=== PATIENT | female | born 1940 | race Two or more races ===

== ENCOUNTER 2016-09-14 13:22 | Inpatient (IN) | payer OTHER, MEDICARE ==
[~2016-09-14] VITALS: Ht 162.6 cm; Wt 48.8 kg
[2016-09-14 14:35] LABS: BASOPHIL % 0.4 % (0-2); PLATELET COUNT 259 x10^3mcL (130-400); RED CELL DISTRIBUTION WIDTH 14.4 % (11.5-14.5)
[2016-09-14 14:45] LABS: CARBON DIOXIDE 29.1 mmol/L (21-32); CHLORIDE SERUM 105 mmol/L (98-107); CREATININE SERUM 0.7 mg/dL (0.6-1.0); GLUCOSE SERUM 100 mg/dL (74-106); POTASSIUM SERUM 4.9 mmol/L (3.5-5.1); SODIUM SERUM 138 mmol/L (136-145)
[2016-09-14 14:49] LABS: ALBUMIN 3.5 g/dL (3.4-5.0); ALKALINE PHOSPHATASE 80 U/L (46-116); ALT/SGPT 18 U/L (14-59); AST/SGOT 17 U/L (15-37); BILIRUBIN TOTAL 1.2 mg/dL (0.20-1.00); LIPASE 141 IU/L (73-393); TOTAL PROTEIN, SERUM 7.4 g/dL (6.4-8.2)
--- NOTE | 2016-09-14 15:01 | NUR ---
PT PRESENTED TO ED WITH C/O PAIN TO RLQ X 5 DAYS. ABD IS SOFT AND ROUND. NO PALPABLE MASSES. PT CLAIMS WAS SEEN AT URGENT CARE AND REFERED TO COME TO ED TO RULE OUT APENDICITIS. PT REPORTS PAIN LEVEL 5/10. PT A/O X 4. PT IS STABLE AND IN NO ACUTE DISTRESS.
[2016-09-14] MEDS ORDERED: ATENOLOL25 MG PO (15:36)
[2016-09-14] MEDS ORDERED: METFORMIN500 M1 PO (15:36)
[2016-09-14] MEDS ORDERED: NEU300 PO (15:37)
[2016-09-14] MEDS ORDERED: MIRAPEX0.25 MG PO (15:37)
[2016-09-14 15:50] LABS: PHOSPHOROUS 4.1 mg/dL (2.5-4.9)
[2016-09-14 15:57] LABS: T3 TOTAL 0.83 ng/mL
[2016-09-14 16:00] LABS: FREE T4 1.25 ng/dL (0.76-1.46); FREE THYROXINE INDEX 3.3 ug/dL (1.4-4.5); T4(THYROXINE) 8.8 ug/dL (4.7-13.3)
--- NOTE | 2016-09-14 16:05 | NUR ---
PT STABLE, IN NO DISTRESS
--- NOTE | 2016-09-14 16:21 | NUR ---
REPORT GIVEN TO LAISHA TO ASSUME CARE, PT TO BE TRANSFERED TO ROOM 243B
--- NOTE | 2016-09-14 16:35 | NUR ---
RECEIVED PT FROM ED [facility]IA [facility] [employer], CAME IN DUE TO RLQ ABDOMINAL PAIN X5 DAYS. AAOX4. NO SOB NOTED. DENIES CHEST PAIN/PRESSURE, NSR ON THE MONITOR. STATED THAT SHE HAS MILD RIGHT ABDOMINAL PRESSURE DISCOMFORT. DENIES NAUSEA/VOMITING. IV SITE PATENT AND INTACT. SIDE RAILS UPX2. CALL LIGHT ON REACH. ENDORSED
[2016-09-14 16:40] VITALS: BP 155/73
[2016-09-14 16:41] VITALS: BP 161/87
[2016-09-14 16:48] VITALS: Ht 162.6 cm; Wt 48.8 kg
--- NOTE | 2016-09-14 16:55 | NUR ---
PATIENT RESTING IN BED, FAM AT BEDSIDE, REPORTS ABD PAIN 0/10 AT REST, 5/10 WITH MOVEMENT AND PALPATION, DECLINED PAIN MED DOSE, ASSISTED TO POSITION OF COMFORT, REMINDED NOT TO EAT OR DRINK ANY FOODS OR LIQUIDS, PT HAD HER LAST MEAL AT 0700 TODAY, AWAITING FOR SURGEON TO SPEAK WITH PATIENT AND FAMILY, SX INTERVENTION HAS BEEN SCHEDULED FOR 2029 TODAY, NO OTHER SIGNIFICANT CHANGES NOTED, CARE WILL BE ENDORSED TO NIGHT NURSE FOR CONTINUED CARE.
--- NOTE | 2016-09-14 20:39 | NUR ---
PT TRANSPORTED TO OR. NO ACUTE DISTRESS. A/O X4. TELE #25 SHOWING NSR. PULSES PALPABLE IN ALL EXTREMITIES, NO EDEMA NOTED. LUNG SOUNDS CTA BILATERALLY. BOWEL SOUNDS ACTIVE, LAST BM 09/14/16. VOIDING WELL. AMBULATORY. SKIN INTACT. PT STATES ABD PAIN ONLY WHILE PALPATING. IV PATENT AND INTACT. WILL CONTINUE TO MONITOR.
[2016-09-14 22:39] VITALS: BP 104/68
[2016-09-14 23:12] VITALS: BP 122/64
--- NOTE | 2016-09-14 23:13 | NUR ---
RECEIVED PT FROM OR, NO ACUTE DISTRESS. MEDICATED PAIN PER EMAR. VITAL SIGNS STABLE. WILL CONTINUE TO MONITOR.
[2016-09-14 23:15] VITALS: BP 109/72
[2016-09-14 23:36] VITALS: BP 109/72
[2016-09-15] VITALS (7 sets, daily range): BP systolic 114–128; BP diastolic 58–83
--- NOTE | 2016-09-15 01:20 | NUR ---
PT CURRENTLY RESTING IN BED, NO ACUTE DISTRESS. WILL CONTINUE TO MONITOR.
--- NOTE | 2016-09-15 05:29 | NUR ---
LEFT ABD BANDAID SATURATED, DR KRUEGER INFORMED. WILL CONTINUE TO MONITOR.
--- NOTE | 2016-09-15 05:37 | NUR ---
NEW BANDAID APPLIED TO LEFT INCISION. NO ACUTE DISTRESS. WILL CONTINUE TO MONITOR.
--- NOTE | 2016-09-15 06:14 | NUR ---
PT SLEPT PERIODICALLY THROUGHOUT NIGHT, NO ACUTE DISTRESS. ALL NEEDS MET AND ATTENDED TO. NO SIGNIFICANT CHANGES. IV PATENT AND INTACT. MEDICATED PAIN PER EMAR. BED IN LOWEST POSITION, SIDE RAILS UP X2, SCDS IN PLACE, CALL LIGHT WITHIN REACH. WILL ENDORSE CARE TO ONCOMING NURSE.
[2016-09-15 06:20] LABS: CALCIUM 8.1 mg/dL (8.5-10.1); CARBON DIOXIDE 21.6 mmol/L (21-32); CHLORIDE SERUM 106 mmol/L (98-107); CREATININE SERUM 0.6 mg/dL (0.6-1.0); GLUCOSE SERUM 126 mg/dL (74-106); MAGNESIUM 1.8 mg/dL (1.8-2.4); PHOSPHOROUS 4.3 mg/dL (2.5-4.9); POTASSIUM SERUM 4.5 mmol/L (3.5-5.1); SODIUM SERUM 140 mmol/L (136-145)
[2016-09-15 06:40] LABS: PLATELET COUNT 209 x10^3mcL (130-400)
[2016-09-15 06:51] LABS: BASOPHIL % 0 % (0-2); RED CELL DISTRIBUTION WIDTH 14.7 % (11.5-14.5)
--- NOTE | 2016-09-15 19:30 | NUR ---
PT IS ALERT AND ORIENTED. PLEASANT AND COOPERATIVE. CLEAR LUNG SOUNDS ON AUSCULTATIONS BILATERALLY UPPER AND LOWER BASES. 02SAT 97%. INCENTIVE SPIROMETRY AT BEDSIDE. AND TOLERATING IT. PT IS AMBULATORY. STILL HAS IV NS AT 40 ML PER HOUR INFUSING WELL IN THE LEFT AC. STILL GETTING ZOSYN IV ANTIBIOTIC S/P LAP APPENDECTOMY. BAND-AID IN THE ABDOMINAL INCISION. PT STATED SHE PASSED GAS. ROLY SCD ON FOR DVT PROPHYLAXIS. WILL CONTINUE TO MONITOR.
[2016-09-16 05:14] VITALS: BP 126/68
--- NOTE | 2016-09-16 05:29 | NUR ---
PT IS RESTING. DENIES ANY PAIN OR DISCOMFORT. STILL HAS IV NS AT 40 ML PER HOUR INFUSING WELL IN THE LEFT AC. AMBULATORY. ASSISTED TO THE BATHROOM. WILL MONITOR.
[2016-09-16] MEDS ORDERED: BAY PO (05:59)
[2016-09-16 06:35] LABS: BASOPHIL % 0.2 % (0-2); PLATELET COUNT 214 x10^3mcL (130-400); RED CELL DISTRIBUTION WIDTH 14.4 % (11.5-14.5)
[2016-09-16 06:45] LABS: ALKALINE PHOSPHATASE 62 U/L (46-116); ALT/SGPT 14 U/L (14-59); AST/SGOT 13 U/L (15-37); BILIRUBIN TOTAL 0.4 mg/dL (0.20-1.00); CALCIUM 8.2 mg/dL (8.5-10.1); CARBON DIOXIDE 24.1 mmol/L (21-32); CHLORIDE SERUM 110 mmol/L (98-107); CREATININE SERUM 0.8 mg/dL (0.6-1.0); GLUCOSE SERUM 115 mg/dL (74-106); MAGNESIUM 1.9 mg/dL (1.8-2.4); PHOSPHOROUS 2.8 mg/dL (2.5-4.9); POTASSIUM SERUM 4.5 mmol/L (3.5-5.1); SODIUM SERUM 141 mmol/L (136-145)
[2016-09-16 06:49] LABS: ALBUMIN 2.3 g/dL (3.4-5.0); TOTAL PROTEIN, SERUM 5.6 g/dL (6.4-8.2)
--- NOTE | 2016-09-16 08:18 | NUR ---
AT 0730 - RECEIVED PATIENT FROM NIGHT NURSE. PATIENT AWAKE, ALERT AND APPEARS ORIENTED. MONITOR SHOWING SINUS RHYTHM; RATE 62. IV INFUSING NS AT 40ML/HR.
[2016-09-16] MEDS ORDERED: LIPI10 PO (08:55)
[2016-09-16] MEDS ORDERED: COL100 PO (08:55)
[2016-09-16] MEDS ORDERED: ACETAMINOPHEN-H1 TA1 PO (08:59)
[2016-09-16 10:08] VITALS: BP 126/68
[2016-09-16 10:28] VITALS: BP 135/68
--- NOTE | 2016-09-16 11:58 | NUR ---
AT 0835 - SEEN BY DR HUTCHISON DURING MORNING ROUNDS. MEDICAL TEAM DOCTORS, [employer]WAT SANDERS AND MYSELF PRIMARY NURSE ALSO PRESENT. DR HUTCHISON SPOKE WITH PATIENT AND FAMILY ABOUT PLAN OF CARE INCLUDING PLAN TO DC HOME TODAY. PATIENT SAT UP IN BED FOR BREAKFAST. AT 0850 - MEDICATED WITH NORCO PER EMAR. PATIENT ENCOURAGED TO USE INSENTIVE SPIROMETER AND AMBULATE. AT 1000 - RECEIVED DISCHARGE ORDERS. AT 1015 - PATIENT TAKEN OFF CARDIAC MONITORING. IV INFUSION DISCONTINUED AND IV CATHETER REMOVED INTACT. ABDOMINAL SURGICAL INCISIONS PHOTO DOCUMENTED. ALL 3 SITES ARE CLEAN AND DRY WITH ALICIA IN PLACE. NEW BAND-AIDS APPLIED AND PATIENT AND FAMILY INSTRUCTED IN CARE OF WOUNDS. AT 1100 - PRINTED DISCHARGE INSTRUCTIONS GIVEN AND EXPLAINED TO PATIENT AND FAMILY. PRESCRIPTIONS PROVIDED. AT 1125 - DISCHARGED HOME WITH FAMILY. TAKEN TO DISCHARGE OFFICE IN WHEELCHAIR BY FORREST.
== END 2016-09-16 11:25 | disposition home or self-care (01) | DRG 225 ==
LOC: ED 13:22 → DU 15:03
PROVIDERS: Emergency Medicine; Surgery; ADMIT Family Medicine
PROC: 0DTJ4ZZ Resection of Appendix, Percutaneous Endoscopic Approach (ICD-10-PCS; principal; 2016-09-14 20:30)
DX: K35.80 Unspecified acute appendicitis (principal); E43 Unspecified severe protein-calorie malnutrition; I50.43 Acute on chronic combined systolic (congestive) and diastolic (congestive) heart failure; E11.40 Type 2 diabetes mellitus with diabetic neuropathy, unspecified; K56.7 Ileus, unspecified; I08.3 Combined rheumatic disorders of mitral, aortic and tricuspid valves; E11.51 Type 2 diabetes mellitus with diabetic peripheral angiopathy without gangrene; E11.65 Type 2 diabetes mellitus with hyperglycemia; I11.0 Hypertensive heart disease with heart failure; I16.0 Hypertensive urgency; E80.6 Other disorders of bilirubin metabolism; Z68.1 Body mass index [BMI] 19.9 or less, adult; D64.9 Anemia, unspecified; Z79.84 Long term (current) use of oral hypoglycemic drugs
CPT/HCPCS: 82962; 83880; 84439; J0330; J2250; J2270; J2405; J2543; J2704; J3010; J3490; J7030; Q0092

== ENCOUNTER 2016-09-17 22:30 | Emergency (ER) | payer MEDICARE, OTHER ==
[~2016-09-17 22:30] MED LIST: ACETAMINOPHEN-H1 TA1 PO; ATENOLOL25 MG PO; BAY PO; COL100 PO; LIPI10 PO; METFORMIN500 M1 PO; MIRAPEX0.25 MG PO; NEU300 PO
[2016-09-17 22:53] VITALS: BP 147/81
== END 2016-09-18 01:58 | disposition left against medical advice (07) ==
LOC: ED 22:30
DX: Z53.21 Procedure and treatment not carried out due to patient leaving prior to being seen by health care provider (principal)